=== PATIENT | female | born 1975 | race Caucasian/White ===

== ENCOUNTER 2021-01-22 19:05 | Emergency (ER) | payer SELFPAY ==
[2021-01-22] MEDS ORDERED: Ketorolac 15 MG/ML SDV IVPUSH ONE (19:19)
[2021-01-22] MEDS ORDERED: diphenhydrAMINE 50 MG/ML SDV IVPUSH ONE (19:20)
[2021-01-22] MEDS ORDERED: Morphine 4 MG/ML Syringe IVPUSH ONE (19:21)
[2021-01-22] MEDS ORDERED: Prochlorperazine 10 MG/2 ML SDV IVPUSH ONE (19:21)
[2021-01-22] MEDS ORDERED: Lactated Ringers 1,000 ML IV SCH (19:30)
--- NOTE | 2021-01-22 20:16 | EDM.PDOC ---
ED HPI GENERAL MEDICAL PROBLEM - General Chief Complaint: Headache Stated Complaint: severe headache Time Seen by Provider: 01/22/21 19:12 Source of Information: Reports: Patient, Family History Limitations: Reports: No Limitations - History of Present Illness INITIAL COMMENTS - FREE TEXT/NARRATIVE: Pt. presents to ER with complaints of severe frontal headache. Pt. states that the discomfort started acutely tonight at about 1830. She was watching TV at the onset. She states that she has a history of migraine headache, but she states that this is worse than normal. Denies any photophobia. No fever or chills. Denies any vision loss or change. No numbness/tingling in extremities or face. No facial droop or asymmetry. Pt. states that she had numerous teeth removed under sedation last week. She is currently taking hydrocodone for the pain. Onset: Today Headache Pain Score (Numeric/FACES): 10 - Related Data Allergies Allergy/AdvReac Type Severity Reaction Status Date / Time doxycycline Allergy Itching Verified 01/22/21 19:25 Home Meds: Home Meds Diclofenac Sodium [Voltaren] 75 mg PO BID 07/19/18 [History] FLUoxetine HCl [Prozac] 1 tab PO DAILY 07/19/18 [History] Levothyroxine 1 tab PO DAILY 07/19/18 [History] Lisinopril 1 tab PO DAILY 07/19/18 [History] Omeprazole Magnesium [Prilosec Otc] 1 tab PO DAILY 07/19/18 [History] Varenicline Tartrate [Chantix] 1 tab PO DAILY 07/19/18 [History] atenoloL [Atenolol] 25 mg PO DAILY 07/19/18 [History] Past Medical History Cardiovascular History: Reports: Hypertension Respiratory History: Reports: Asthma, Bronchitis, Recurrent Musculoskeletal History: Reports: Arthritis Other Musculoskeletal History: chronic arthritis Social & Family History - Family History Musculoskeletal: Reports: Arthritis Neurological: Reports: Migraines Psychiatric: Reports: Depression Oncologic: Reports: Breast - Caffeine Use Caffeine Use: Reports: Coffee, Energy Drinks, Soda, Tea Other Caffeine Use: 1 coffee, 3 mountain dews ED ROS GENERAL - Review of Systems Review Of Systems: See Below Constitutional: Reports: No Symptoms, Diaphoresis. Denies: Fever, Chills, Malaise, Weakness, Fatigue, Night Sweats HEENT: Reports: Dental Pain. Denies: Vertigo, Vision Change Respiratory: Reports: No Symptoms Cardiovascular: Reports: No Symptoms Endocrine: Reports: No Symptoms GI/Abdominal: Reports: No Symptoms : Reports: No Symptoms Musculoskeletal: Reports: No Symptoms Skin: Reports: No Symptoms Neurological: Reports: Headache. Denies: Confusion, Dizziness, Numbness, Paresthesia, Pre-Existing Deficit, Seizure, Syncope, Tingling, Tremors, Trouble Speaking, Difficulty Walking, Weakness, Change in Speech, Gait Disturbance Psychiatric: Reports: No Symptoms Hematologic/Lymphatic: Reports: No Symptoms Immunologic: Reports: No Symptoms ED EXAM, GENERAL - Physical Exam Exam: See Below Exam Limited By: No Limitations General Appearance: Alert, WD/WN, No Apparent Distress Extremities: Normal Inspection, Normal Range of Motion, Non-Tender, No Pedal Edema, Normal Capillary Refill Neurological: Alert, Oriented, CN II-XII Intact, Normal Cognition, Normal Gait, No Motor/Sensory Deficits, Other (No pronator drift. 5/5 strength in upper extremities. Speech is fluent. Gait is within normal limits. No facial droop noted.) Psychiatric: Normal Affect, Normal Mood Skin Exam: Warm, Dry, Intact, Normal Color, No Rash Course - Vital Signs Last Recorded V/S: Last Vital Signs Temp 37.2 C 01/22/21 19:10 Pulse 70 01/22/21 19:10 Resp 20 01/22/21 19:10 BP 157/82 H 01/22/21 19:10 Pulse Ox 100 01/22/21 19:10 - Orders/Labs/Meds Orders: Active Orders 24 hr Category Date Time Status Head wo Cont [CT] Stat Exams 01/22/21 19:18 Taken Meds: Medications Discontinued Medications Generic Name Dose Route Start Last Admin Trade Name Jean-Claudeq PRN Reason Stop Dose Admin Diphenhydramine HCl 50 mg 01/22/21 19:20 01/22/21 19:41 Diphenhydramine 50 Mg/Ml Sdv IVPUSH 01/22/21 19:21 50 mg ONETIME ONE Administration Lactated Ringer's 1,000 mls @ 500 mls/hr 01/22/21 19:30 01/22/21 20:06 Ringers, Lactated IV 500 mls/hr ASDIRECTED VALERIA Administration Ketorolac Tromethamine 15 mg 01/22/21 19:19 01/22/21 19:41 Ketorolac 15 Mg/Ml Sdv IVPUSH 01/22/21 19:20 15 mg ONETIME ONE Administration Morphine Sulfate 4 mg 01/22/21 19:21 01/22/21 19:42 Morphine 4 Mg/Ml Syringe IVPUSH 01/22/21 19:22 4 mg ONETIME ONE Administration Prochlorperazine Edisylate 10 mg 01/22/21 19:21 01/22/21 19:41 Prochlorperazine 10 Mg/2 Ml Sdv IVPUSH 01/22/21 19:22 10 mg ONETIME ONE Administration - Radiology Interpretation Free Text/Narrative:: CT brain obtained without contrast. Pt. had evidence of ethmoid and maxillary sinusitis. No evidence of acute hemorrhage, mass, or other acute pathology noted. - Re-Assessments/Exams Free Text/Narrative Re-Assessment/Exam: 01/22/21 20:16 Pt. was given toradol 15mg IV, compazine 10mg IV, morphine 4mg IV, and benadryl 50mg IV. She was also given a liter of lactated ringers. Pt. reported significant improvement in discomfort. Pain was near 0 after the medications. Departure - Departure Time of Disposition: 21:00 Disposition: Home, Self-Care 01 Clinical Impression: Sinusitis, Migraine - Discharge Information Instructions: Amoxicillin; Clavulanic Acid Tablets, Sinusitis, Adult, [id number], Probiotics Referrals: Caterina Rose PA [Primary Care Provider] - Forms: ED Department Discharge Additional Instructions: Home to rest. Off work tomorrow if needed due to headache. Increase consumption of fluids. Augmentin 875mg 1 tab twice daily for 10 days. Finish full course of antibiotics. Recheck in clinic in 10-14 days, sooner if not gradually improving. Sepsis Event Note (ED) - Evaluation Sepsis Screening Result: No Definite Risk - Problem List Review Problem List Initiated/Reviewed/Updated: Yes - My Orders Last 24 Hours: My Active Orders 01/22/21 19:18 Head wo Cont [CT] Stat - Assessment/Plan Last 24 Hours: My Active Orders 01/22/21 19:18 Head wo Cont [CT] Stat Plan: Home to rest. Off work tomorrow if needed due to headache. Increase consumption of fluids. Augmentin 875mg 1 tab twice daily for 10 days. Finish full course of antibiotics. Recheck in clinic in 10-14 days, sooner if not gradually improving.
== END 2021-01-22 21:00 | disposition home or self-care (01) ==
LOC: LL.ED 19:05
DX: G43.909 Migraine, unspecified, not intractable, without status migrainosus (principal); J32.9 Chronic sinusitis, unspecified; I10 Essential (primary) hypertension; Z88.1 Allergy status to other antibiotic agents; Z79.899 Other long term (current) drug therapy
CPT/HCPCS: 70450; 96374; 96375; 99284-25; J0780; J1200; J1885; J2270; J7120

== ENCOUNTER 2021-08-10 20:01 | Emergency (ER) | payer BC ==
[2021-08-10 20:49] LABS: ANION GAP 8.4 meq/L (7-15); CHLORIDE,CL 103 mmol/L (98-107); SODIUM,NA 139 mmol/L (136-145)
[2021-08-10] MEDS ORDERED: Aspirin 81 MG Tab.Chew ONE (20:52)
--- NOTE | 2021-08-10 21:14 | EDM.PDOC ---
ED HPI GENERAL MEDICAL PROBLEM - General Chief Complaint: Chest Pain Stated Complaint: CHest pain Time Seen by Provider: 08/10/21 20:25 Source of Information: Reports: Patient - History of Present Illness INITIAL COMMENTS - FREE TEXT/NARRATIVE: Brittnee is a 46 y/o female who comes to the ER with chest pain that started about 5:30 pm tonight. She denies any trauma today. Describes the pain as constant and all across the front of her chest from shoulder to shoulder. Rates it 7/10, but has not taken anything for it. Denies nausea or vomiting. No diaphoresis. Pain does not change with exertion. Denies previous cardiac event. Did get her Moderna COVID booster earlier today. 6 Pain Score (Numeric/FACES): 7 - Related Data Allergies Allergy/AdvReac Type Severity Reaction Status Date / Time doxycycline Allergy Itching Verified 01/22/21 19:25 meloxicam Allergy Itching Verified 08/10/21 20:03 Home Meds: Home Meds Diclofenac Sodium [Voltaren] 75 mg PO BID 07/19/18 [History] Levothyroxine 1 tab PO DAILY 07/19/18 [History] Omeprazole Magnesium [Prilosec Otc] 1 tab PO DAILY 07/19/18 [History] atenoloL [Atenolol] 25 mg PO DAILY 07/19/18 [History] Gabapentin [Neurontin] 300 mg PO BID 08/10/21 [History] Lisinopril/Hydrochlorothiazide [Lisinopril-Hctz 20-12.5 mg Tab] 1 tab PO DAILY 08/10/21 [History] buPROPion HCL [Wellbutrin Xl] 150 mg PO DAILY 08/10/21 [History] Past Medical History HEENT History: Reports: Impaired Vision Cardiovascular History: Reports: Hypertension, Other (See Below) Other Cardiovascular History: Right bundle branch block Respiratory History: Reports: Asthma, Bronchitis, Recurrent Musculoskeletal History: Reports: Arthritis Other Musculoskeletal History: chronic arthritis Neurological History: Reports: Migraines - Past Surgical History HEENT Surgical History: Reports: Oral Surgery Female Surgical History: Reports: Section, Hysterectomy Social & Family History - Family History Musculoskeletal: Reports: Arthritis Neurological: Reports: Migraines Psychiatric: Reports: Depression Oncologic: Reports: Breast, Skin - Tobacco Use Tobacco Use Status *Q: Current Every Day Tobacco User Years of Tobacco use: 30 Packs/Tins Daily: 0.5 - Caffeine Use Caffeine Use: Reports: Coffee, Soda Other Caffeine Use: 1 coffee, 3 mountain dews - Recreational Drug Use Recreational Drug Use: No Review of Systems - Review of Systems Review Of Systems: See Below Constitutional: Reports: No Symptoms Eyes: Reports: No Symptoms Ears: Reports: No Symptoms Nose: Reports: No Symptoms Mouth/Throat: Reports: No Symptoms Respiratory: Reports: No Symptoms Cardiovascular: Reports: Chest Pain GI/Abdominal: Reports: No Symptoms Genitourinary: Reports: No Symptoms Musculoskeletal: Reports: No Symptoms Skin: Reports: No Symptoms Neurological: Reports: No Symptoms Psychiatric: Reports: No Symptoms ED EXAM, GENERAL - Physical Exam Exam: See Below General Appearance: Alert, WD/WN, No Apparent Distress (Adult female, non-toxic appearing) Eye Exam: Bilateral Eye: PERRL Ears: Normal External Exam, Normal Canal, Hearing Grossly Normal Nose: Normal Inspection, Normal Mucosa Throat/Mouth: Normal Inspection, Normal Lips, Normal Voice Head: Atraumatic, Normocephalic Neck: Normal Inspection, Supple Respiratory/Chest: No Respiratory Distress, Lungs Clear, Chest Non-Tender Cardiovascular: Normal Peripheral Pulses, Regular Rate, Rhythm, No Murmur GI/Abdominal: Normal Bowel Sounds, Soft, No Distention (Female) Exam: Deferred Rectal (Female) Exam: Deferred Back Exam: Normal Inspection, Full Range of Motion Extremities: Normal Inspection, Normal Range of Motion, No Pedal Edema, Normal Capillary Refill Neurological: Alert, Oriented, CN II-XII Intact, Normal Cognition Psychiatric: Normal Affect, Normal Mood Skin Exam: Warm, Dry, Intact, Normal Color, No Rash Lymphatic: No Adenopathy #1 Interpretation EKG Date: 08/10/21 Time: 20:10 Rhythm: NSR Rate (Beats/Min): 76 [place]: Normal P-Wave: Present QRS: RBBB ST-T: Normal QT: Normal Comparison: NA - No Prior EKG EKG Interpretation Comments: NSR with RBBB Course - Vital Signs Text/Narrative:: 2025 The patient was seen by the FRUIT COORDINATOR. Labs, EKG, & CXR ordered. She was given ASA 324mg po x 1 dose. 2140 Labs reviewed. Note Troponin I=negative. EKG stable. Other labs all negative as noted above. Chest pain unchanged. Discussed HEART Score=1 and Risk of MACE 0.9-1.7%, discussed with the patient and her . Doubt cardiac etiology. Toradol 30mg IVP for pain given. 2214 Pain starting to improve with Toradol. Favor chest wall pain. Will send home with muscle relaxers and OTC NSAID use. Written instructions were given and she left the ER in stable condition with her . Last Recorded V/S: Last Vital Signs Temp 35.8 C L 08/10/21 20:25 Pulse 75 08/10/21 21:45 Resp 19 08/10/21 21:45 BP 129/83 08/10/21 21:45 Pulse Ox 99 08/10/21 21:45 - Orders/Labs/Meds Orders: Active Orders 24 hr Category Date Time Status CXR [Chest 2V] [CR] Stat Exams 08/10/21 20:06 Taken Labs: Laboratory Tests 08/10/21 08/10/21 08/10/21 Range/Units 20:05 20:05 20:05 WBC 16.4 H (4.0-10.2) K/uL RBC 5.20 H (3.77-5.09) M/uL Hgb 15.0 (11.7-15.5) g/dL Hct 44.2 (34.0-46.0) % MCV 85.0 (84.0-98.0) fL MCH 28.8 (28.2-33.3) pg MCHC 33.9 (31.7-36.0) g/dL RDW 13.7 (11.2-14.1) % Plt Count 353 H (150-350) K/uL Neut % (Auto) 58.2 (45.0-80.0) % Lymph % (Auto) 33.6 (10.0-50.0) % [place] % (Auto) 5.1 (2.0-14.0) % Eos % (Auto) 2.9 (0.0-5.0) % Baso % (Auto) 0.2 (0.0-2.0) % Neut # (Auto) 9.51 H (1.40-7.00) K/uL Lymph # (Auto) 5.49 H (0.50-3.50) K/uL [place] # (Auto) 0.84 (0.00-1.00) K/uL Eos # (Auto) 0.48 (0.00-0.50) K/uL Baso # (Auto) 0.04 (0.00-0.20) K/uL D-Dimer, Quantitative 394 (0-400) ng/mL Sodium 139 (136-145) mmol/L Potassium 4.0 (3.5-5.1) mmol/L Chloride 103 (98-107) mmol/L Carbon Dioxide 27.6 (21.0-32.0) mmol/L Anion Gap 8.4 (7-15) meq/L BUN 18 (7-18) mg/dL Creatinine 0.88 (0.51-1.17) mg/dL Est Cr Clr Drug Dosing TNP Estimated GFR (MDRD) > 60 mL/min Glucose 102 H (70-99) mg/dL Lactic Acid (0.4-2.0) mmol/L Calcium 8.9 (8.5-10.1) mg/dL Magnesium 2.1 (1.8-2.4) mg/dL Total Bilirubin 0.3 (0.2-1.0) mg/dL AST 11 L (15-37) U/L ALT 27 (12-78) U/L Alkaline Phosphatase 80 (46-116) IU/L Troponin I High Sens 5 (<=51) ng/L C-Reactive Protein (<=0.9) mg/dL Total Protein 8.2 (6.4-8.2) g/dL Albumin 3.7 (3.4-5.0) g/dL TSH, Ultra Sensitive (0.358-3.740) mIU/mL 08/10/21 08/10/21 Range/Units 20:05 20:05 WBC (4.0-10.2) K/uL RBC (3.77-5.09) M/uL Hgb (11.7-15.5) g/dL Hct (34.0-46.0) % MCV (84.0-98.0) fL MCH (28.2-33.3) pg MCHC (31.7-36.0) g/dL RDW (11.2-14.1) % Plt Count (150-350) K/uL Neut % (Auto) (45.0-80.0) % Lymph % (Auto) (10.0-50.0) % [place] % (Auto) (2.0-14.0) % Eos % (Auto) (0.0-5.0) % Baso % (Auto) (0.0-2.0) % Neut # (Auto) (1.40-7.00) K/uL Lymph # (Auto) (0.50-3.50) K/uL [place] # (Auto) (0.00-1.00) K/uL Eos # (Auto) (0.00-0.50) K/uL Baso # (Auto) (0.00-0.20) K/uL D-Dimer, Quantitative (0-400) ng/mL Sodium (136-145) mmol/L Potassium (3.5-5.1) mmol/L Chloride (98-107) mmol/L Carbon Dioxide (21.0-32.0) mmol/L Anion Gap (7-15) meq/L BUN (7-18) mg/dL Creatinine (0.51-1.17) mg/dL Est Cr Clr Drug Dosing Estimated GFR (MDRD) mL/min Glucose (70-99) mg/dL Lactic Acid 1.0 (0.4-2.0) mmol/L Calcium (8.5-10.1) mg/dL Magnesium (1.8-2.4) mg/dL Total Bilirubin (0.2-1.0) mg/dL AST (15-37) U/L ALT (12-78) U/L Alkaline Phosphatase (46-116) IU/L Troponin I High Sens (<=51) ng/L C-Reactive Protein 1.8 H (<=0.9) mg/dL Total Protein (6.4-8.2) g/dL Albumin (3.4-5.0) g/dL TSH, Ultra Sensitive 2.862 (0.358-3.740) mIU/mL Meds: Medications Discontinued Medications Generic Name Dose Route Start Last Admin Trade Name Freq PRN Reason Stop Dose Admin Aspirin Confirm 08/10/21 20:52 08/10/21 20:57 Aspirin 81 Mg Tab.Chew Administered 08/10/21 20:53 324 mg Dose Administration 324 mg .ROUTE .STK-MED ONE Ketorolac Tromethamine 30 mg 08/10/21 21:43 08/10/21 22:02 Ketorolac 30 Mg/Ml Sdv IVPUSH 08/10/21 21:44 30 mg ONETIME ONE Administration Departure - Departure Time of Disposition: 22:21 Disposition: Home, Self-Care 01 Condition: Good Clinical Impression: Chest pain Qualifiers: Chest pain type: unspecified Qualified Code(s): R07.9 - Chest pain, unspecified - Discharge Information Instructions: Nonspecific Chest Pain, Adult Referrals: Caterina Rose PA [Primary Care Provider] - Forms: ED Department Discharge Additional Instructions: -Ibuprofen 200mg 3 tabs oral 3 a day for pain/inflammation -Cyclobenzaprine 10 mg orally every 8 hours as needed for muscle spasms #30 (ER Rx) -Ice or heat applied to the area as needed -Rest, Increase activity as able -Follow up with your Primary Care Provider to arrange further diagnostic testing if the pain persists -Return to the ER if any other concerns Sepsis Event Note (ED) - Evaluation Sepsis Screening Result: No Definite Risk - Focused Exam Vital Signs: Vital Signs Temp Pulse Resp BP Pulse Ox 08/10/21 21:45 75 19 129/83 99 08/10/21 21:30 78 18 136/80 99 08/10/21 21:15 80 17 143/77 H 98 08/10/21 21:00 80 18 139/80 98 08/10/21 20:27 79 16 125/71 97 08/10/21 20:25 35.8 C L 79 16 125/71 98 - Problem List & Annotations (1) Chest pain SNOMED Code(s): 67982093 Code(s): R07.9 - CHEST PAIN, UNSPECIFIED Status: Acute Current Visit: No Annotation/Comment:: Troponin/EKG negative. Discussed HEART score and risk of MACE with patient and her . She understands risk and chooses to go home to rest. Favor Chest wall pain, Toradol improved pain. Qualifiers: Chest pain type: unspecified Qualified Code(s): R07.9 - Chest pain, unspecified - Problem List Review Problem List Initiated/Reviewed/Updated: Yes - My Orders Last 24 Hours: My Active Orders 08/10/21 20:06 CXR [Chest 2V] [CR] Stat - Assessment/Plan Last 24 Hours: My Active Orders 08/10/21 20:06 CXR [Chest 2V] [CR] Stat Plan: See above
[2021-08-10] MEDS ORDERED: Ketorolac 30 MG/ML SDV IVPUSH ONE (21:43)
== END 2021-08-10 22:26 | disposition home or self-care (01) ==
LOC: LL.ED 20:01
DX: R07.9 Chest pain, unspecified (principal); I10 Essential (primary) hypertension; Z72.0 Tobacco use; Z88.1 Allergy status to other antibiotic agents; Z88.8 Allergy status to other drugs, medicaments and biological substances; Z79.899 Other long term (current) drug therapy
CPT/HCPCS: 36415; 71046; 80053; 83605; 83735; 84443; 84484; 85025; 85379; 86140; 93005; 93010; 96374; 99284; 99285-25; A9270-GY; J1885

== ENCOUNTER 2022-06-27 06:39 | Emergency (ER) | payer OTHER ==
[2022-06-27] MEDS ORDERED: Ketorolac 30 MG/ML SDV IM ONE (06:46)
[2022-06-27] MEDS ORDERED: Promethazine 25 MG/ML SDV IM ONE (06:47)
[2022-06-27] MEDS ORDERED: Ketorolac 30 MG/ML SDV IVPUSH ONE (06:50)
[2022-06-27] MEDS ORDERED: Orphenadrine 60 MG/2 ML Inj ONE (06:59)
[2022-06-27] MEDS ORDERED: Orphenadrine 60 MG/2 ML Inj IM ONE (07:05)
[2022-06-27] MEDS ORDERED: methylPREDNISolone Sodium Succinate 125 MG/2 ML SDV IM ONE (08:47)
[2022-06-27] MEDS ORDERED: HYDROmorphone 0.5 MG/0.5 ML Syringe IM ONE (08:47)
== END 2022-06-27 09:23 | disposition home or self-care (01) ==
LOC: LL.ED 06:39
DX: M54.50 Low back pain, unspecified (principal); G89.29 Other chronic pain; I10 Essential (primary) hypertension; J45.909 Unspecified asthma, uncomplicated; K21.9 Gastro-esophageal reflux disease without esophagitis; M19.90 Unspecified osteoarthritis, unspecified site; Z72.0 Tobacco use; Z88.1 Allergy status to other antibiotic agents; Z88.8 Allergy status to other drugs, medicaments and biological substances; Z79.899 Other long term (current) drug therapy
CPT/HCPCS: 96372; 96374; 99283-25; J1170; J1885; J2360; J2550; J2930

== ENCOUNTER 2022-08-04 11:11 | Emergency (ER) | payer OTHER ==
[2022-08-04] MEDS ORDERED: HYDROmorphone 0.5 MG/0.5 ML Syringe IVPUSH ONE (11:34)
[2022-08-04] MEDS ORDERED: Cyclobenzaprine 10 MG Tab PO ONE (11:34)
[2022-08-04] MEDS ORDERED: methylPREDNISolone Sodium Succinate 125 MG/2 ML SDV IM ONE (11:37)
[2022-08-04] MEDS ORDERED: traMADol 50 MG Tab PO PRN (11:39)
[2022-08-04] MEDS ORDERED: methylPREDNISolone Sodium Succinate 125 MG/2 ML SDV IVPUSH ONE (11:50)
[2022-08-04] MEDS: Sodium Chloride 0.9% 10 ML Syringe FLUSH PRN ×2 (11:58→12:44)
[2022-08-04] MEDS ORDERED: Orphenadrine 60 MG/2 ML Inj IV ONE (12:40)
== END 2022-08-04 13:00 | disposition home or self-care (01) ==
LOC: LL.ED 11:11
DX: M54.41 Lumbago with sciatica, right side (principal); M54.42 Lumbago with sciatica, left side; I10 Essential (primary) hypertension; K21.9 Gastro-esophageal reflux disease without esophagitis; F17.210 Nicotine dependence, cigarettes, uncomplicated; Z88.1 Allergy status to other antibiotic agents; Z88.8 Allergy status to other drugs, medicaments and biological substances; Z79.899 Other long term (current) drug therapy
CPT/HCPCS: 96374; 96375; 99283-25; A9270-GY; J1170; J2360; J2930; J3490

== ENCOUNTER 2024-02-20 08:26 | Day surgery (SDC) | payer OTHER ==
[~2024-02-20 08:26] MED LIST: Propofol 200 MG/20 ML SDV ONE
[2024-02-20] MEDS ORDERED: Sodium Chloride 0.9% 10 ML Syringe FLUSH PRN (08:30)
[2024-02-20] MEDS: Lactated Ringers 1,000 ML IV SCH (09:15)
[2024-02-20] MEDS ORDERED: Propofol 200 MG/20 ML SDV ONE (09:44)
== END 2024-02-20 10:49 | disposition home or self-care (01) ==
LOC: LL.SDS 08:26
PROVIDERS: ATTEND Surgery
DX: Z12.11 Encounter for screening for malignant neoplasm of colon (principal); J01.01 Acute recurrent maxillary sinusitis; M54.16 Radiculopathy, lumbar region; I10 Essential (primary) hypertension; F32.A Depression, unspecified; F41.1 Generalized anxiety disorder; E78.5 Hyperlipidemia, unspecified; Z87.891 Personal history of nicotine dependence; Z79.899 Other long term (current) drug therapy
CPT/HCPCS: J2704; J7120

== ENCOUNTER 2024-10-31 06:04 | Emergency (ER) | payer OTHER | END 2024-10-31 06:55 | disposition home or self-care (01) | LOC: LL.ED 06:04 | DX: M96.842 Postprocedural seroma of a musculoskeletal structure following a musculoskeletal system procedure (principal); I10 Essential (primary) hypertension; Z87.891 Personal history of nicotine dependence; E78.00 Pure hypercholesterolemia, unspecified; Z88.8 Allergy status to other drugs, medicaments and biological substances; Z79.890 Hormone replacement therapy; Z79.899 Other long term (current) drug therapy; Z79.51 Long term (current) use of inhaled steroids | CPT/HCPCS: 99283 ==